=== PATIENT | male | born 1980 | race Caucasian/White ===

== ENCOUNTER 2018-03-04 18:29 | Emergency (ER) | payer MEDICAID ==
[~2018-03-04] VITALS: Ht 162.6 cm; Wt 74.5 kg
[2018-03-04] MEDS ORDERED: IBUPROFEN 600 MG TABLET PO ONE (20:00)
[2018-03-04 21:03] VITALS: BP 121/78
== END 2018-03-04 21:29 | disposition home or self-care (01) ==
LOC: EMS 18:30
DX: R07.89 Other chest pain (principal)
CPT/HCPCS: 93005; 99284

== ENCOUNTER 2020-04-15 19:48 | Emergency (ER) | payer MEDICAID ==
[~2020-04-15] VITALS: Ht 167.6 cm; Wt 74.5 kg
[2020-04-15] MEDS ORDERED: HYDROCODONE/ACETAMINOPHEN 5-325 MG TABLET PO ONE (21:00)
[2020-04-15 21:53] VITALS: BP 121/76
== END 2020-04-15 22:05 | disposition home or self-care (01) ==
LOC: EMS 19:48
DX: S00.03XA Contusion of scalp, initial encounter (principal); W01.0XXA Fall on same level from slipping, tripping and stumbling without subsequent striking against object, initial encounter; Y93.89 Activity, other specified; Y92.89 Other specified places as the place of occurrence of the external cause; Y99.8 Other external cause status
CPT/HCPCS: 70450

== ENCOUNTER 2021-07-19 17:47 | Emergency (ER) | payer MEDICAID ==
[~2021-07-19] VITALS: Ht 170.2 cm; Wt 76.4 kg
[2021-07-19 17:56] VITALS: BP 118/69
== END 2021-07-19 18:40 | disposition home or self-care (01) ==
LOC: EMS 17:53
DX: B00.1 Herpesviral vesicular dermatitis (principal)
CPT/HCPCS: 99283; Z7502

== ENCOUNTER 2023-02-22 11:28 | Emergency (ER) | payer MEDICAID ==
[~2023-02-22] VITALS: Ht 162.6 cm; Wt 77.3 kg
[2023-02-22 12:01] LABS: COVID AG,FIA SOURCE NASAL SWAB
[2023-02-22 12:04] LABS: APPEARANCE,URINE CLEAR (CLEAR); BILIRUBIN,URINE NEGATIVE (NEGATIVE); GLUCOSE, URINE (UA) NEGATIVE (NEGATIVE); KETONES,URINE NEGATIVE (NEGATIVE); LEUKOCYTE ESTERASE ,URINE NEGATIVE (NEGATIVE); NITRATE,URINE NEGATIVE (NEGATIVE); OCCULT BLOOD,URINE NEGATIVE (NEGATIVE); PROTEIN,URINE TRACE mg/dL (NEGATIVE); UROBILINOGEN,URINE <=1.0 mg/dL (<=1.0)
[2023-02-22 12:19] LABS: RAPID GROUP A STREP NEGATIVE (NEGATIVE)
[2023-02-22 12:24] LABS: INFLUENZA TYPE B NEGATIVE FOR TYPE B (NEGATIVE)
[2023-02-22 12:47] LABS: INFLUENZA TYPE A POSITIVE FOR TYPE A (NEGATIVE)
[2023-02-22] MEDS ORDERED: GuaiFENesin/D-METHORPHAN [SUGAR-FREE] 200-20MG/10 ML SYRUP UDCUP PO ONE (14:30)
[2023-02-22] MEDS ORDERED: ACETAMINOPHEN/CODEINE 300-30 MG TABLET PO ONE (14:30)
[2023-02-22] MEDS ORDERED: IBUPROFEN 600 MG TABLET PO ONE (14:30)
[2023-02-22 14:41] VITALS: BP 110/72; PULSE 70; RESP 18; TEMP 98.3
[2023-02-22] MEDS ORDERED: IBUP-1554 PO (15:46)
[2023-02-22] MEDS ORDERED: GUAIFDM PO (15:46)
[2023-02-22] MEDS ORDERED: ACET-2080 PO (15:46)
== END 2023-02-22 16:11 | disposition home or self-care (01) ==
LOC: EMS 11:29
DX: J10.1 Influenza due to other identified influenza virus with other respiratory manifestations (principal); R51.9 Headache, unspecified; R10.84 Generalized abdominal pain; J20.9 Acute bronchitis, unspecified; Z20.822 Contact with and (suspected) exposure to COVID-19
CPT/HCPCS: 81003; 87430; 87804; 99284